=== PATIENT | female | born 1995 | race Two or more races ===

== ENCOUNTER 2024-06-20 10:19 | Emergency (ER) | payer OTHER ==
[~2024-06-20] VITALS: Ht 162.6 cm; Wt 77.1 kg
[2024-06-20 10:53] VITALS: BP 104/58; TEMP 98.7; O2SAT 100
[2024-06-20] MEDS ORDERED: AMOX500T2 PO (11:42)
== END 2024-06-20 12:12 | disposition home or self-care (01) ==
LOC: ER 10:27
DX: J04.0 Acute laryngitis (principal); J02.9 Acute pharyngitis, unspecified